=== PATIENT | female | born 1935 | race Caucasian/White ===

== ENCOUNTER 2018-11-23 13:26 | Emergency (ER) | payer MEDICARE, BC ==
[~2018-11-23] VITALS: Ht 167.6 cm; Wt 76.8 kg
[~2018-11-23 13:26] MED LIST: ASPIRIN81 MG PO; BABY ASPIRIN81 MG PO; CALCIUM/D250 MG PO; CIPRO500 MG PO; FISH OIL300 MG OR; FLUTICASONE50 MCG; HYZAAR1 TA1 PO; LEVOTHYROXIN25 MCG PO; METOPROL TAR25 MG PO; NAPROSYN500 MG PO; NAPROXEN DR500 MG PO; NO MEDS; OMNICEF300 MG OR; TIMOLOL 0.5%5 ML OS
[2018-11-23 14:08] LABS: HEMATOCRIT 34.7 % (37.0-47.0); HEMOGLOBIN 11.4 g/dl (12.0-16.0); IMMATURE GRANULOCYTES 0.6 % (0.0-5.0); MEAN CELL VOLUME 92.8 fL CALC (80.0-100.0); MEAN CORPUSCULAR HGB 30.5 pG CALC (26.0-32.0); MEAN CORPUSCULAR HGB CONC 32.9 g/L CALC (32.0-36.0); NEUT# 5.71 thou/uL (2.00-7.15); RED BLOOD COUNT 3.74 mill/uL (4.20-5.60)
[2018-11-23 14:09] LABS: CREATININE 1.2 mg/dL (0.5-1.0); POTASSIUM 4.2 mmol/l (3.5-5.1)
[2018-11-23 15:10] LABS: URINE BILIRUBIN - DIPSTICK NEGATIVE (NEGATIVE); URINE BLOOD DIPSTICK NEGATIVE (NEGATIVE); URINE COLOR YELLOW; URINE GLUCOSE - DIPSTICK NEGATIVE (NEGATIVE); URINE KETONE NEGATIVE (NEGATIVE); URINE LEUK ESTERASE NEGATIVE (NEGATIVE); URINE NITRITE - DIPSTICK NEGATIVE (Negative); URINE PROTEIN - DIPSTICK NEGATIVE (NEG-TRACE); URINE SPECIFIC GRAVITY 1.015; URINE UROBILINOGEN - DIPSTICK 0.2 E.U./dL (0.2)
[2018-11-23 17:31] VITALS: BP 120/70
[2018-11-23] MEDS ORDERED: TORADOL PO (17:37)
== END 2018-11-23 17:56 | disposition home or self-care (01) ==
LOC: ED 13:26
PROVIDERS: Family Medicine
DX: S70.02XA Contusion of left hip, initial encounter (principal); S50.312A Abrasion of left elbow, initial encounter; M54.5 Low back pain; I10 Essential (primary) hypertension; W01.0XXA Fall on same level from slipping, tripping and stumbling without subsequent striking against object, initial encounter; Y92.009 Unspecified place in unspecified non-institutional (private) residence as the place of occurrence of the external cause

== ENCOUNTER 2022-07-26 12:36 | Emergency (ER) | payer MEDICARE, BC ==
[~2022-07-26] VITALS: Ht 167.6 cm; Wt 90.0 kg
[2022-07-26] VITALS (15 sets, daily range): BP systolic 119–167; BP diastolic 58–96
[~2022-07-26 12:36] MED LIST changes: +TORADOL PO
[2022-07-26 16:07] LABS: BASO% 0.6 % (0-3); EOS% 1.1 % (0-8); HEMATOCRIT 33.9 % (37.0-47.0); IMMATURE GRANULOCYTES 0.1 % (0.0-5.0); LYMPH% 11.8 % (15-41); MEAN CELL VOLUME 92.9 fL CALC (80.0-100.0); MEAN CORPUSCULAR HGB 30.1 pG CALC (26.0-32.0); MEAN CORPUSCULAR HGB CONC 32.4 g/dL CAL (32.0-36.0); MONO% 13.9 % (2-13); NEUT# 5.96 thou/uL (2.00-7.15); NEUT% 72.5 % (42-76); RED BLOOD COUNT 3.65 mill/uL (4.20-5.60); RED CELL DISTRI WIDTH 13.3 % (11.5-15.5)
[2022-07-26 16:24] LABS: ALBUMIN 4.1 g/dL (3.2-5.0); ALKALINE PHOSPHATASE 61 u/l (38-126); ANION GAP 8 (6-22 (CALC)); BILIRUBIN, TOTAL 0.6 mg/dL (0.02-1.3); BUN 24 mg/dL (8-23); BUN/CREATININE RATIO 23 (12-20 (CALC)); CARBON DIOXIDE 28 mmol/l (22-30); CHLORIDE 102 mmol/l (95-108); GFR FOR AFR.AMER. > 60 ML/MIN (>=60 (CALC)); GFR OTHER RACES 52 ML/MIN (>=60 (CALC)); POTASSIUM 3.8 mmol/l (3.5-5.1); SGOT/AST 25 u/l (9-36); SODIUM 134 mmol/l (137-146); TOTAL PROTEIN 6.9 g/dL (6.3-8.2)
== END 2022-07-26 19:47 | disposition home or self-care (01) ==
LOC: ED 12:36
PROVIDERS: Emergency Medicine
DX: S42.202A Unspecified fracture of upper end of left humerus, initial encounter for closed fracture (principal); R55 Syncope and collapse; I10 Essential (primary) hypertension; W01.0XXA Fall on same level from slipping, tripping and stumbling without subsequent striking against object, initial encounter; Y92.239 Unspecified place in hospital as the place of occurrence of the external cause